=== PATIENT | male | born 1935 | race Caucasian/White ===

== ENCOUNTER → 2019-03-25 | Outpatient (CLI) | payer MEDICARE ==
[~2019-03-25] MED LIST: CARDIZEM CD120 MG PO; COUMADIN 5 MG TA5 M1 PO; FLECAINIDE ACE100 MG PO; LEVOTHROID 00.075 M1 PO; SIMVASTATIN20 MG PO
== END ==
LOC: NUC 09:37
DX: M47.816 Spondylosis without myelopathy or radiculopathy, lumbar region (principal)